=== PATIENT | female | born 1955 | race Caucasian/White ===

== ENCOUNTER → 2017-06-23 | Outpatient (CLI) | payer MEDICAID | LOC: FIMAGING 12:58 | PROVIDERS: ATTEND Nurse Practitioner Family | DX: Z12.31 Encounter for screening mammogram for malignant neoplasm of breast (principal) | CPT/HCPCS: G0202 ==

== ENCOUNTER → 2017-07-30 | Outpatient (CLI) | payer MEDICAID | LOC: FIMAGING 09:23 | PROVIDERS: ATTEND Nurse Practitioner Family | DX: Z13.820 Encounter for screening for osteoporosis (principal); M85.80 Other specified disorders of bone density and structure, unspecified site ==

== ENCOUNTER 2018-02-02 15:48 | Emergency (ER) | payer MEDICAID ==
--- NOTE | 2018-02-02 15:50 | EDPHY ---
H & P Time Seen by Provider: 02/02/18 15:50 HPI/ROS: CHIEF COMPLAINT: "I am fucked up" HISTORY OF PRESENT ILLNESS: 62-year-old woman brought in by EMS from [facility] after having drunk too much vodka and unable to stand. Staff called because they found her unable to walk in the restaurant. The patient admits to alcohol but denies other complaints. REVIEW OF SYSTEMS: Eye: no change in vision ENT: no sore throat Cardiac: no chest pain or syncope Pulmonary: no cough or SOB Abdomen: no vomiting, diarrhea, abdominal pain Musculoskeletal: Chronic back pain, no neck pain, denies any fall injury or trauma. Skin: no rash Neuro: no headache Constitutional: no fever : no urinary symptoms A comprehensive 10 point review of systems is otherwise negative aside from elements mentioned in the history of present illness. PAST MEDICAL HISTORY: Alcoholism Social history: Recent vodka General Appearance: Alert and conversant, cooperative. Eyes: No scleral icterus. ENT, Mouth: Normal mucous membranes. Respiratory: Normal respiratory effort, breath sounds equal, lungs are clear to auscultation. Cardiovascular: Regular rate and rhythm. Gastrointestinal: Abdomen is soft and non tender. Neurological: Alert, face symmetric, normal motor and sensory in extremities. Slightly slurred speech, straight leg raising negative. Skin: Warm and dry, no rashes. Musculoskeletal: No peripheral extremity deformity. Psychiatric: Not agitated. Denies SI or OD. Emergency Department course/MDM: Presents with alcohol intoxication. Serial exams and then to detox, or home with sober friend. 1706: Ambulatory, only complaint is her chronic back pain, I do not think there is high likelihood for spinal cord compromise or cauda equina syndrome or acute fracture. Apparently has a ride coming to pick her up. 1840: At this time patient is alert and ambulatory and not ataxic. Her speech is fluent and her sensorium is clear and she is clinically sober. She is stable to be discharged to the waiting room to wait for her ride home. Constitutional: Initial Vital Signs Temperature (C) 36.9 C 02/02/18 15:56 Heart Rate 91 02/02/18 15:56 Respiratory Rate 18 02/02/18 15:56 Blood Pressure 125/69 H 02/02/18 15:56 O2 Sat (%) 92 02/02/18 15:56 O2 Delivery Mode Room Air Medical Decision Making Differential Diagnosis: Differential diagnosis considered for altered mental status including but not limited to hypoglycemia, infectious process, electrolyte abnormality, head injury and intoxicants. Departure - Departure Disposition: Home, Routine, Self-Care Clinical Impression: Alcoholic intoxication Qualifiers: Complication of substance-induced condition: uncomplicated Qualified Code(s): F10.920 - Alcohol use, unspecified with intoxication, uncomplicated Back pain Qualifiers: Back pain location: low back pain Chronicity: chronic Back pain laterality: unspecified Sciatica presence: without sciatica Qualified Code(s): M54.5 - Low back pain Condition: Good Instructions: Alcohol Intoxication (ED), Chronic Back Pain (ED) Referrals: Pao Ricardo NP [Non Staff and Non MD] - As per Instructions
[2018-02-02 18:58] VITALS: BP 118/65
== END 2018-02-02 18:51 | disposition home or self-care (01) ==
LOC: EDUNIT#
DX: F10.920 Alcohol use, unspecified with intoxication, uncomplicated (principal); M54.5 Low back pain

== ENCOUNTER 2018-02-06 15:20 | Emergency (ER) | payer MEDICAID ==
[2018-02-06 15:28] VITALS: BP 136/89
--- NOTE | 2018-02-06 15:31 | EDPHY ---
H & P Stated Complaint: mid to lower back pain "scoliosis" x yrs & etoh detox Time Seen by Provider: 02/06/18 15:30 - Personal History Current Tetanus/Diphtheria Vaccine: Unsure Current Tetanus Diphtheria and Acellular Pertussis (TDAP): Unsure - Medical/Surgical History Hx Asthma: No Hx Chronic Respiratory Disease: No Hx Diabetes: No Hx Cardiac Disease: No Hx Renal Disease: No Hx Cirrhosis: No Hx Alcoholism: Yes Hx HIV/AIDS: No Hx Splenectomy or Spleen Trauma: No Other PMH: ETOH. depression. w/d seizures~2007 - Social History Smoking Status: Current every day smoker Constitutional: Initial Vital Signs Temperature (C) 36.5 C 02/06/18 15:24 Heart Rate 91 02/06/18 15:24 Respiratory Rate 18 02/06/18 15:24 Blood Pressure 136/89 H 02/06/18 15:24 O2 Sat (%) 95 02/06/18 15:24 O2 Delivery Mode Room Air Allergies/Adverse Reactions: No Known Allergies Allergy (Unverified 02/06/18 15:22) Home Medications: Medication Instructions Recorded Diclofenac Sodium 1% [Voltaren Gel 4 gm TP BID #1 tube 02/06/18 (*)] Diclofenac Sodium [Voltaren 50 MG 50 mg PO BID #14 tab 02/06/18 (*)] Medical Decision Making ED Course/Re-evaluation: CHIEF COMPLAINT: Mid and low back pain HISTORY OF PRESENT ILLNESS: The patient is a 62 y/o female with a history of alcoholism complaining of chronic mid to low back pain. On Thursday, 3 days ago, she was in the emergency room for similar complaints and discharged home. She is currently detoxing from alcohol and last drank 3 hours ago. She is requesting for "something to take the edge off" and is comfortable with [facility]. Denies chest pain, shortness of breath, vomiting, abdominal pain, urinary or bowel complaints, numbness, paresthesias. REVIEW OF SYSTEMS: A 10 point review of systems was performed and is negative with the exception of the elements mentioned in the history of present illness. PHYSICAL EXAM: HR, BP, O2 Sat, RR. Temp noted General Appearance: Alert, well hydrated, appropriate, and non-toxic appearing. Head: Atraumatic without scalp tenderness or obvious injury Eyes: Pupils equal, round, reactive to light and accommodation, EOMI, no trauma , no injection. Ears: Clear bilaterally, no perforation, normal landmarks Nose: Atraumatic, no rhinorrhea, clear. Throat: Mucus membranes moist. Neck: Supple, nontender, no lymphadenopathy. Respiratory: No retractions, no distress, no wheezes, and no accessory muscle use. Lungs are clear to auscultation bilaterally. Cardiovascular: Regular rate and rhythm, no murmurs, rubs, or gallops. Good capillary refill all extremities. Gastrointestinal: Abdomen is soft, nontender, non-distended, no masses, no rebound, no guarding, no peritoneal signs. Musculoskeletal: Normal active ROM of all extremities, atraumatic. Neurological: Alert, appropriate, and interactive. Nonfocal neuro. Skin: No rashes, good turgor, no nodules on palpation. Past medical history: Depression, alcoholism, alcohol withdrawal seizures Past surgical history: Denies Family history: Denies Social history: Single, lives in [place], not employed DIFFERENTIAL DIAGNOSIS: The differential diagnosis for the patient's back pain included but was not limited to musculoskeletal pain, epidural abscess, herniated disk, spinal fracture, and intra-abdominal causes including urinary system. MEDICAL DECISION MAKING: The patient is a 62 y/o female presenting with chronic mid to low back pain and alcohol detox. She is requesting for medication to take "the edge off" of her detox and back pain. Imaging and laboratory studies are not indicated at this time. 1555: Reassessed patient and discussed Librium and Diclofenac prescription. Her first dose of Librium will be given in this emergency department. We're discharging the patient to the [facility] in stable condition. Departure - Departure Disposition: Home, Routine, Self-Care Clinical Impression: Alcohol abuse Chronic back pain Qualifiers: Back pain location: low back pain Back pain laterality: unspecified Sciatica presence: without sciatica Qualified Code(s): M54.5 - Low back pain Condition: Good Instructions: Chlordiazepoxide/Clidinium (By mouth), Alcohol Intoxication (ED) , Abuse of Alcohol (ED), Chronic Back Pain (ED) Additional Instructions: 1. Take Librium as prescribed for your alcohol withdrawal symptoms. 2. Take Diclofenac as prescribed. 3. Go directly to [facility]. 4. Please refrain from abusing alcohol. 5. Return to the emergency department immediately for fever, vomiting, confusion , headache, abdominal pain or other worsening of condition. 6. Followup with your primary care physician within 72 hours for reevaluation. Referrals: Pao Ricardo NP [Primary Care Provider] - As per Instructions [facility] 24 Hours [Outside] - As per Instructions Prescriptions: Diclofenac Sodium [Voltaren 50 MG (*)] 50 mg PO BID #14 tab Diclofenac Sodium 1% [Voltaren Gel (*)] 4 gm TP BID #1 tube Report Scribed for: Benjamin Sanchez Report Scribed by: Mya Schmidt Date of Report: 02/06/18 Time of Report: 15:31
[2018-02-06] MEDS ORDERED: chlordiazePOXIDE 25 MG CAP PO ONE (15:37)
[2018-02-06] MEDS ORDERED: CHLORDIAZEPOXIDE 25MG PREPK#6 BTL TAKEHOME ONE (15:37)
== END 2018-02-06 16:01 | disposition home or self-care (01) ==
DX: M54.5 Low back pain (principal); F10.10 Alcohol abuse, uncomplicated; F17.200 Nicotine dependence, unspecified, uncomplicated

== ENCOUNTER 2018-02-06 20:21 | Emergency (ER) | payer MEDICAID ==
--- NOTE | 2018-02-06 20:30 | EDPHY ---
H & P Time Seen by Provider: 02/06/18 20:25 - Medical/Surgical History Hx Asthma: No Hx Chronic Respiratory Disease: No Hx Diabetes: No Hx Cardiac Disease: No Hx Renal Disease: No Hx Cirrhosis: No Hx Alcoholism: Yes Hx HIV/AIDS: No Hx Splenectomy or Spleen Trauma: No Other PMH: ETOH. depression. w/d seizures~2007 - Social History Smoking Status: Current every day smoker Constitutional: Initial Vital Signs Temperature (C) 37.0 C 02/06/18 20:25 Heart Rate 73 02/06/18 20:25 Respiratory Rate 16 02/06/18 20:25 Blood Pressure 113/84 H 02/06/18 20:25 O2 Sat (%) 97 02/06/18 20:25 O2 Delivery Mode Room Air Allergies/Adverse Reactions: No Known Allergies Allergy (Verified 02/06/18 20:30) Home Medications: Medication Instructions Recorded Diclofenac Sodium 1% [Voltaren Gel 4 gm TP BID #1 tube 02/06/18 (*)] Diclofenac Sodium [Voltaren 50 MG 50 mg PO BID #14 tab 02/06/18 (*)] Medical Decision Making ED Course/Re-evaluation: CHIEF COMPLAINT: Sent back to the ED from the [facility] HISTORY OF PRESENT ILLNESS: Patient is arriving via EMS from the [facility] for a potential Librium overdose after being discharged from here with Librium. She went home and took 4 tabs (100mg) of Librium after being discharged from the emergency department. She was supposed to go directly to the [facility], but when home prior to going to the [facility]. Denies chest pain, shortness of breath, vomiting, abdominal pain, urinary or bowel complaints, numbness, paresthesias. REVIEW OF SYSTEMS: A 10 point review of systems was performed and is negative with the exception of the elements mentioned in the history of present illness. PHYSICAL EXAM: HR, BP, O2 Sat, RR. Temp noted General Appearance: Alert, well hydrated, appropriate, and non-toxic appearing. Head: Atraumatic without scalp tenderness or obvious injury Eyes: Pupils equal, round, reactive to light and accommodation, EOMI, no trauma , no injection. Ears: Clear bilaterally, no perforation, normal landmarks Nose: Atraumatic, no rhinorrhea, clear. Throat: Mucus membranes moist. Neck: Supple, nontender, no lymphadenopathy. Respiratory: No retractions, no distress, no wheezes, and no accessory muscle use. Lungs are clear to auscultation bilaterally. Cardiovascular: Regular rate and rhythm, no murmurs, rubs, or gallops. Good capillary refill all extremities. Gastrointestinal: Abdomen is soft, nontender, non-distended, no masses, no rebound, no guarding, no peritoneal signs. Musculoskeletal: Normal active ROM of all extremities, atraumatic. Neurological: Alert, appropriate, and interactive. Nonfocal neuro. Skin: No rashes, good turgor, no nodules on palpation. Past medical history: Depression, alcoholism, alcohol withdrawal seizures Past surgical history: Denies Family history: Denies Social history: Single, lives in [place], not employed DIFFERENTIAL DIAGNOSIS: The differential diagnosis for the patient's altered mental status included but was not limited to Librium overdose, hypoglycemia, infectious process, electrolyte abnormality, head injury, neurologic process, anemia, cardiac process, and intoxicants. MEDICAL DECISION MAKING: The patient is a 62 y/o female presenting for potential Librium overdose from the [facility] after taking 100mg PO Librium. Patient is not overdosing on Librium, but she is anxious. 2mg PO Ativan administered. 2029: Reassessed patient and discussed Librium prescription. We're discharging the patient to the [facility] in stable condition. 2111: Patient has been accepted to the [facility]. - Data Points Medications Given: Discontinued Medications Chlordiazepoxide (Librium 25 Mg Prepack#6) 1 btl TAKEHOME EDNOW ONE Stop: 02/06/18 20:47 Last Admin: 02/06/18 20:46 Dose: 1 btl Lorazepam (Ativan) 2 mg PO EDNOW ONE Stop: 02/06/18 20:37 Last Admin: 02/06/18 20:36 Dose: 2 mg Departure - Departure Disposition: Home, Routine, Self-Care Clinical Impression: Alcohol abuse Condition: Good Instructions: Chlordiazepoxide/Clidinium (By mouth), Abuse of Alcohol (ED) Additional Instructions: 1. Please refrain from abusing alcohol. 2. Return to the emergency department immediately for fever, vomiting, confusion , headache, abdominal pain or other worsening of condition. 3. Followup with your primary care physician within 72 hours for reevaluation. Referrals: Pao Ricardo NP [Primary Care Provider] - As per Instructions [facility] 24 Hours [Outside] - As per Instructions
[2018-02-06] MEDS ORDERED: LORazepam 1 MG TAB ONE (20:31)
[2018-02-06 20:32] VITALS: BP 113/84
[2018-02-06] MEDS ORDERED: LORazepam 1 MG TAB PO ONE (20:36)
[2018-02-06] MEDS ORDERED: CHLORDIAZEPOXIDE 25MG PREPK#6 BTL TAKEHOME ONE (20:44)
[2018-02-06] MEDS: CHLORDIAZEPOXIDE 25MG PREPK#6 BTL TAKEHOME ONE ×2 (20:46→21:20)
== END 2018-02-06 21:50 | disposition home or self-care (01) ==
LOC: EDUNIT#
DX: F10.10 Alcohol abuse, uncomplicated (principal); F17.200 Nicotine dependence, unspecified, uncomplicated